=== PATIENT | male | born 1950 | race Caucasian/White ===

== ENCOUNTER → 2019-05-08 | Outpatient (CLI) | payer MEDICARE, BC ==
[~2019-05-08] MED LIST: ALBU18HF PO; AMLO10TA8 PO; CLIN40CR TD; FLUT9.9S NAS; HYDR-3240 PO; LATA2.5D3 EACHEYE; LEVO5DRO4 OP; LISI-167 PO; MELO7.5T31 PO; METO-95 PO; METR45CR2 TD; SIMV20TA3 PO; TAMS-11 PO; UMEC1DIS INH; ZOLP-413 PO
== END | disposition home or self-care (01) ==
LOC: CVU 13:35
PROVIDERS: ATTEND Internal Medicine Cardiovascular Disease
DX: I08.2 Rheumatic disorders of both aortic and tricuspid valves (principal); J44.9 Chronic obstructive pulmonary disease, unspecified; E78.5 Hyperlipidemia, unspecified; I10 Essential (primary) hypertension
CPT/HCPCS: 0399T; 93306; 94060; 94726; 94729